=== PATIENT | male | born 1995 | race Caucasian/White ===

== ENCOUNTER → 2017-07-16 | Outpatient (CLI) | payer OTHER ==
[~2017-07-16] VITALS: Ht 152.4 cm; Wt 83.9 kg
[~2017-07-16] MED LIST: BACTROBAN OINT22 GM TP; CEPHALEXIN750 MG PO; GILTUSS TR TAB1 EACH PO; ZYRTEC10 MG PO
== END | disposition home or self-care (01) ==
LOC: PPHC 13:45
DX: Z00.8 Encounter for other general examination (principal)

== ENCOUNTER → 2017-07-16 | Outpatient (CLI) | payer OTHER ==
[~2017-07-16] VITALS: Ht 152.4 cm; Wt 83.9 kg
== END | disposition home or self-care (01) ==
LOC: PPHC 13:52
DX: Z02.79 Encounter for issue of other medical certificate (principal)

== ENCOUNTER 2018-09-18 15:45 | Outpatient (CLI) | payer OTHER | END 2018-09-18 16:58 | disposition home or self-care (01) | LOC: RAD 15:45 | DX: M79.605 Pain in left leg (principal) ==

== ENCOUNTER 2018-10-17 08:53 | Outpatient (CLI) | payer OTHER | END 2018-10-17 10:09 | disposition home or self-care (01) | LOC: MRI 08:53 | DX: M79.605 Pain in left leg (principal) | CPT/HCPCS: 73721 ==

== ENCOUNTER → 2018-10-23 11:18 | Outpatient (CLI) | payer OTHER | END | disposition home or self-care (01) | LOC: LAB 11:18 | DX: E55.9 Vitamin D deficiency, unspecified (principal); M85.9 Disorder of bone density and structure, unspecified; E21.3 Hyperparathyroidism, unspecified; E88.89 Other specified metabolic disorders; M81.8 Other osteoporosis without current pathological fracture; E56.1 Deficiency of vitamin K ==

== ENCOUNTER 2018-10-31 08:09 | Outpatient (CLI) | payer OTHER | END 2018-11-01 07:46 | disposition home or self-care (01) | LOC: TOM 08:09 | DX: D16.22 Benign neoplasm of long bones of left lower limb (principal) ==

== ENCOUNTER 2021-08-29 07:23 | Outpatient (CLI) | payer OTHER | END 2021-08-29 07:27 | disposition home or self-care (01) | LOC: LAB 07:23 | PROVIDERS: ATTEND Pediatrics Neonatal-Perinatal Medicine | DX: Z20.822 Contact with and (suspected) exposure to COVID-19 (principal) ==

== ENCOUNTER 2022-05-15 13:22 | Emergency (ER) | payer OTHER ==
[~2022-05-15] VITALS: Ht 180.3 cm; Wt 97.5 kg
[2022-05-15] MEDS ORDERED: IBUPROFEN800 MG PO (15:38)
== END 2022-05-15 16:19 | disposition home or self-care (01) ==
LOC: ER 13:22
DX: S99.912A Unspecified injury of left ankle, initial encounter (principal); X58.XXXA Exposure to other specified factors, initial encounter; Y93.9 Activity, unspecified

== ENCOUNTER → 2023-01-12 | Emergency (ER) | payer OTHER ==
[~2023-01-12] VITALS: Ht 177.8 cm; Wt 72.6 kg
[~2023-01-12] MED LIST changes: +IBUPROFEN800 MG PO
== END | disposition left against medical advice (07) ==
LOC: ER 14:24
DX: Z53.21 Procedure and treatment not carried out due to patient leaving prior to being seen by health care provider (principal)

== ENCOUNTER 2023-01-13 14:17 | Emergency (ER) | payer OTHER ==
[~2023-01-13] VITALS: Ht 177.8 cm; Wt 97.5 kg
== END 2023-01-13 18:21 | disposition home or self-care (01) ==
LOC: ER 14:17
PROVIDERS: Nurse Practitioner Family
DX: J10.1 Influenza due to other identified influenza virus with other respiratory manifestations (principal); R53.81 Other malaise; Z20.822 Contact with and (suspected) exposure to COVID-19